=== PATIENT | female | born 2000 | race Caucasian/White ===

== ENCOUNTER 2023-02-06 14:20 | Inpatient (IN) | payer MEDICAID ==
[~2023-02-06] VITALS: Ht 165.1 cm; Wt 136.1 kg
[2023-02-06 15:34] VITALS: BP 128/68; PULSE 71; RESP 20; TEMP 97.8; O2SAT 98
[2023-02-06] MEDS ORDERED: TERBUTALINE 1 MG/ML VIAL SUBQ ONE (15:50)
[2023-02-06 16:00] VITALS: BP 131/73; PULSE 84; RESP 20; TEMP 97.8; O2SAT 98
[2023-02-06] MEDS: LACTATED RINGERS 1,000 ML IV SCH ×2 (16:07→18:12)
[2023-02-06] MEDS: TERBUTALINE 1 MG/ML VIAL SUBQ SCH ×2 (16:09→16:46)
[2023-02-06 16:46] LABS: BASOPHILS # (AUTO) 0.1 K/uL (0.00-0.22); EOSINOPHILS # (AUTO) 0.3 K/uL (0-0.4); EOSINOPHILS % (AUTO) 2.1 % (0.0-4.0); HEMATOCRIT 36.5 % (36-48); HEMOGLOBIN 12.1 g/dL (12.0-16.0); LYMPHOCYTES # (AUTO) 2.9 K/uL (2.5-16.5); LYMPHOCYTES % (AUTO) 22.6 % (20.5-51.1); MEAN CORPUSCULAR HEMOGLOBIN 28 pg (27-31); MEAN CORPUSCULAR HGB CONC 33 g/dL (33-37); MEAN CORPUSCULAR VOLUME 84.5 fL (80-94); MONOCYTES % (AUTO) 7.7 % (1.7-9.3); NEUTROPHILS # (AUTO) 8.6 K/uL (1.8-7.7); NEUTROPHILS % (AUTO) 66.6 % (42.2-75.2); PLATELET COUNT (AUTO) 355 K/uL (140-450); RED BLOOD CELL COUNT(AUTO) 4.32 MIL/uL (4.20-5.40); WHITE BLOOD COUNT (AUTO) 12.9 K/uL (4.8-10.8)
[2023-02-06 16:47] LABS: APPEARANCE,URINE CLEAR (CLEAR); BILIRUBIN,URINE NEGATIVE (NEGATIVE); BLOOD, URINE 2+ (NEGATIVE); COLOR,URINE YELLOW (YELLOW); LEUKOCYTE ESTERASE ,URINE NEGATIVE (NEGATIVE); NITRITE, URINE POSITIVE (NEGATIVE); PROTEIN,URINE 2+ (NEGATIVE); UGLUCOSE 1+ (NEGATIVE); UROBILINOGEN,URINE 0.2 EU/dL (0.2 - 1)
[2023-02-06 17:00] LABS: BACTERIA,URINE 3+ /HPF (None Seen); MUCUS,URINE 1+ /LPF (None Seen); RBC,URINE 11-20 (MOD) /HPF (0-5); TRICHOMONAS,URINE None Seen /HPF (None Seen); YEAST,URINE None Seen /HPF (None Seen)
[2023-02-06 17:29] LABS: INR 0.87 (0.8-1.2); PARTIAL THROMBOPLASTIN TIME 27.4 secs (22-35.6); PROTHROMBIN TIME 9.2 secs (10.8-13.4)
[2023-02-06 17:41] LABS: HIV RAPID SCREEN NON-REACTIVE (NON REACTIV)
[2023-02-06] MEDS ORDERED: CITRIC ACID/SODIUM CITRATE 30 ML UDC PO ONE (17:50)
[2023-02-07] MEDS ORDERED: ceFAZolin 2,000 MG VIAL ONE (00:34)
[2023-02-07] MEDS ORDERED: CITRIC ACID/SODIUM CITRATE 30 ML UDC ONE (00:55)
[2023-02-07] MEDS ORDERED: MORPHINE PRES FREE 5 MG/10 ML AMP IV ONE (01:04)
[2023-02-07] MEDS ORDERED: fentaNYL citrate 0.05 MG/ML VIAL ONE (01:04)
[2023-02-07] MEDS ORDERED: OXYTOCIN 20 UNITS/LR PREMIX 1,000 ML IV ONE ×3 (01:33→20:13)
[2023-02-07] MEDS ORDERED: NALOXONE 0.4 MG/ML VIAL IVP PRN ×2 (02:00)
[2023-02-07] MEDS ORDERED: KETOROLAC 60 MG/2 ML VIAL IM PRN (02:00)
[2023-02-07] MEDS ORDERED: KETOROLAC 30 MG/ML VIAL IVP PRN (02:00)
[2023-02-07] MEDS ORDERED: diphenhydrAMINE 50 MG/ML VIAL IVP PRN ×2 (02:00)
[2023-02-07] MEDS ORDERED: TEMAZEPAM 15 MG CAP PO PRN (02:00)
[2023-02-07] MEDS ORDERED: oxyCODONE/APAP 5/325 MG 1 TAB TAB PO PRN ×2 (02:00)
[2023-02-07] MEDS ORDERED: IBUPROFEN 800 MG TAB PO PRN (02:00)
[2023-02-07] MEDS ORDERED: METHYLERGONOVINE 0.2 MG/ML AMP IM PRN (02:00)
[2023-02-07] MEDS ORDERED: ONDANSETRON 4 MG/2 ML VIAL IVP PRN (02:00)
[2023-02-07] MEDS ORDERED: diphenhydrAMINE 50 MG/ML VIAL ONE (02:42)
[2023-02-07] MEDS: SIMETHICONE 80 MG TAB.CHEW PO PRN ×3 (08:40→18:09)
[2023-02-07] MEDS: OXYTOCIN 20 UNITS in LACTATED RINGERS 1,000 ML IV SCH ×2 (12:05→20:18)
[2023-02-07] MEDS: guaiFENesin 20 MG/ML UDC PO PRN ×2 (15:19→21:21)
[2023-02-07] MEDS: DOCUSATE SOD/SENNA 50/8.6 MG 1 TAB PO SCH (21:00)
[2023-02-08 05:48] LABS: BASOPHILS # (AUTO) 0.1 K/uL (0.00-0.22); BASOPHILS % (AUTO) 0.6 % (0.0-2.0); EOSINOPHILS # (AUTO) 0.3 K/uL (0-0.4); EOSINOPHILS % (AUTO) 2.1 % (0.0-4.0); HEMATOCRIT 28.9 % (36-48); HEMOGLOBIN 9.6 g/dL (12.0-16.0); LYMPHOCYTES # (AUTO) 2.1 K/uL (2.5-16.5); LYMPHOCYTES % (AUTO) 15.8 % (20.5-51.1); MEAN CORPUSCULAR HEMOGLOBIN 28 pg (27-31); MEAN CORPUSCULAR HGB CONC 33 g/dL (33-37); MONOCYTES # (AUTO) 0.9 K/uL (0.8-1.0); MONOCYTES % (AUTO) 6.5 % (1.7-9.3); NEUTROPHILS # (AUTO) 9.9 K/uL (1.8-7.7); PLATELET COUNT (AUTO) 280 K/uL (140-450); RED CELL DISTRIBUTION WIDTH 16.2 % (11.6-13.7); WHITE BLOOD COUNT (AUTO) 13.2 K/uL (4.8-10.8)
[2023-02-08 17:32] LABS: RAPID PLASMA REAGIN NON-REACTIVE (Non Reactiv)
[2023-02-08] MEDS: DOCUSATE SOD/SENNA 50/8.6 MG 1 TAB PO SCH (21:05)
[2023-02-08] MEDS ORDERED: cefTRIAXone 1,000 MG in NACL 0.9% 50 ML IV SCH (21:30)
[2023-02-08] MEDS ORDERED: cefTRIAXone 1,000 MG VIAL ONE (22:35)
[2023-02-09] MEDS ORDERED: CAMERA MC ONE (06:12)
== END 2023-02-09 11:20 | disposition home or self-care (01) | DRG 540 ==
LOC: MLD 14:20 → OBSVTOIN 14:20 → MFCC 02-07 03:36
PROVIDERS: ADMIT Obstetrics & Gynecology; ATTEND Obstetrics & Gynecology
PROC: 10D00Z1 Extraction of Products of Conception, Low, Open Approach (ICD-10-PCS; principal; 2023-02-07 12:30)
DX: O34.211 Maternal care for low transverse scar from previous cesarean delivery (principal); R71.0 Precipitous drop in hematocrit; O42.92 Full-term premature rupture of membranes, unspecified as to length of time between rupture and onset of labor; O76 Abnormality in fetal heart rate and rhythm complicating labor and delivery; Z3A.38 38 weeks gestation of pregnancy; Z37.0 Single live birth
CPT/HCPCS: 36415; 51702; 76815; 81001; 85025; 85610; 85730; 86592; 86886; 86900; 86901; 87086; J0690; J0696; J1200; J1885; J2590; J3010; J3105; J7030; J7060; J7120